=== PATIENT | female | born 1995 | race Caucasian/White ===

== ENCOUNTER 2019-06-22 12:19 | Emergency (ER) | payer OTHER, SELFPAY ==
[2019-06-22 12:24] VITALS: BP 130/78; PULSE 101; RESP 19; TEMP 36.5; O2SAT 100
--- NOTE | 2019-06-22 12:36 | ED.URI ---
HPI - URI/Sore Throat General Chief Complaint: Upper Respiratory Infection Stated Complaint: FLU Time Seen by Provider: 06/22/19 12:28 Source: patient and RN notes reviewed Mode of arrival: ambulatory Limitations: no limitations History of Present Illness HPI Narrative: Pt is a 23 y/o female who presents to the ED with c/o a cough which began at 0300 this morning. Pt states she awoke with a frontal lobe headache which radiates to her neck, that felt like an ache. Pt reports she typically experienced migraines, but not her other symptoms. She states she started to experience nausea, vomiting, and ABD pain shortly after the headache, but denies diarrhea, dysuria, urinary frequency, or a rash anywhere on her body. She reports having vomited 7 times since onset of her symptoms. Pt states she tried taking Zofran for medication which alleviated her nausea for some time. Pt reports she had recent exposure to someone who was ill recently. MD elicited complaint: cough Onset (ago): hour(s) (0300 this morning) Consistency: constant Able to tolerate fluids by mouth: Yes Exacerbating factors: nothing Relieving factors: nothing Associated symptoms: headache (radiating to neck), abdominal pain, nausea and vomiting Related Data Home Medications Medication Instructions Recorded Confirmed No Home Medications 06/22/19 06/22/19 Allergies Allergy/AdvReac Type Severity Reaction Status Date / Time amoxicillin Allergy Unknown Swelling Verified 06/22/19 12:31 Review of Systems Review of Systems: All systems reviewed & are unremarkable except as noted in HPI and below Respiratory: Respiratory: Reports cough Gastrointestinal: Gastrointestinal: Reports abdominal pain, Denies diarrhea, Reports nausea and Reports vomiting Genitourinary: Genitourinary: Denies nocturia and Denies dysuria Integumentary/Breasts: Skin/Breast: Denies rash (anywhere on her body) Neurologic: Reports headache(s) (radiating to neck) [facility] Past Medical History Medical History (Updated 06/22/19 @ 14:24 by Isauro Jennings MD) Celiac disease Surgical History Surgical History (Updated 06/22/19 @ 12:52 by Cindi Lugo) No pertinent past surgical history Social History Social History (Updated 06/22/19 @ 12:51 by Cindi Lugo) Smoking status: Never smoker Gender identity (if verbalized by the patient): Female Exam Narrative: Exam Narrative: GENERAL: Uncomfortable-appearing, well-nourished, and in no acute distress. HEAD: Normocephalic, atraumatic. ENT: Mucous membranes moist. Pharyngeal erythema or tonsillar hypertrophy/exudate. NECK: Supple. Full range of motion. CHEST: Clear to auscultation. No respiratory distress. HEART: Tachycardic and regular. Normal peripheral pulses. ABDOMEN: Soft, nontender, nondistended, normal active bowel sounds. EXTREMITIES: Normal range of motion. No edema. SKIN: Warm, dry, no rash. NEURO: Alert and oriented x3. Course Course Emergency Course: Feels much better with Reglan/Benadryl/Toradol. Headache is now 06/13. Influenza negative. Vital Signs Vital signs: Vital Signs Temperature 97.7 F 06/22/19 12:24 Pulse Rate 101 H 06/22/19 12:24 Respiratory Rate 06/22/19 12:24 Blood Pressure 130/78 06/22/19 12:24 Pulse Oximetry 100 06/22/19 12:24 Temperature 97.7 F 06/22/19 12:24 Pulse Rate 101 H 06/22/19 12:24 Respiratory Rate 06/22/19 12:24 Blood Pressure 130/78 06/22/19 12:24 Pulse Oximetry 100 06/22/19 12:24 MDM - URI/Sore Throat Lab Data Labs: Influenza A Screen Negative Reference Range: Negative Influenza B Screen Negative Reference Range: Negative Discharge Plan Discharge Clinical Impression: Viral infection Headache Qualifiers: Headache type: unspecified Headache chronicity pattern: episodic headache Intractability: not intractable Qualified Code(s): R51 - Headache Patient Disposition: Home, Self-Care
[2019-06-22] MEDS: SODIUM CHLORIDE 0.9% IV 1,000 ML 999 ML IV CONT (13:20)
[2019-06-22] MEDS: KETOROLAC 30 MG/ML VIAL (*BKC) IV PUSH (13:22)
[2019-06-22] MEDS: METOCLOPRAMIDE HCL INJ 10 MG/2 ML VIAL IV PUSH (13:22)
[2019-06-22 14:35] VITALS: BP 109/57; PULSE 105; RESP 18; O2SAT 100
== END 2019-06-22 14:40 | disposition home or self-care (01) ==
PROVIDERS: Emergency Provider Emergency Medicine
DX: B34.9 Viral infection, unspecified (principal); R51 Headache; K90.0 Celiac disease
CPT/HCPCS: 87804; 96361; 96374; 96375; 99284; J1200; J1885; J2765; J7030